=== PATIENT | female | born 1970 | race Hispanic/Latino ===

== ENCOUNTER 2018-01-27 08:09 | Outpatient (CLI) | payer SELFPAY ==
--- NOTE | 2018-02-02 10:16 | MMO ---
BILATERAL SCREENING MAMMOGRAMS: Date: 01/27/18 Comparison made to prior exams from 2016 and 2016. This patient's mammogram was interpreted with the assistance of computer-aided detection. FINDINGS: Scattered fibroglandular densities. No evidence of mass or distortion. No suspicious calcification. N o interval change noted. Recommend one year follow-up. IMPRESSION: BIRADS 1: Negative POS: VJ
== END 2018-01-27 08:10 | disposition home or self-care (01) ==
LOC: SCSMAMMO 08:09
PROVIDERS: ATTEND Internal Medicine
DX: Z12.31 Encounter for screening mammogram for malignant neoplasm of breast (principal)
CPT/HCPCS: 77067

== ENCOUNTER 2018-12-07 15:23 | Outpatient (CLI) | payer OTHER ==
--- NOTE | 2018-12-07 15:53 | ULT ---
VENOUS DUPLEX SONOGRAM BILATERAL LOWER EXTREMITRIES: HISTORY: Bilateral leg pain and edema. FINDINGS: Each common femoral vein and greater saphenous junction were evaluated, along with each femoral, deep femoral, popliteal, and posterior tibial vein. There is good color and spectral Doppler flow, compr ession, and augmentation. IMPRESSION: No sonographic evidence of deep venous thrombosis within either lower extremity. POS: VJ
== END 2018-12-07 15:24 | disposition home or self-care (01) ==
LOC: BICULT 15:23
PROVIDERS: ATTEND Family Medicine
DX: M79.89 Other specified soft tissue disorders (principal)
CPT/HCPCS: 93970